=== PATIENT | male | born 1965 | race Caucasian/White ===

== ENCOUNTER → 2017-03-13 | Outpatient (CLI) | payer BC, OTHER ==
[~2017-03-13] MED LIST: BAYER CHEWABLE81 MG PO; BRILINTA90 MG PO; CENTRUM SILVER1 TAB PO; COZAAR50 MG PO; FISH OIL 1,0001 EAC1 PO; GLYBURIDE5 MG PO; HYDRODIURIL25 MG PO; JANUMET 50-1,01 EACH PO; JARDIANCE25 MG PO; LIPITOR20 M1 PO; NEXIUM40 MG PO; NORCO 5-325 TA1 EACH PO; OMEPRAZOLE40 MG PO; TOPROL XL 5050 MG PO; TOPROL XL25 MG PO; TRICOR145 MG PO; ZANTAC (NON-FO150 MG PO; ZETIA10 MG PO
--- NOTE | ~2017-03-13 | OR ---
PATIENT'S NAME: JOSH ARIZMENDI [facility] AGE: 52 Y [address] ROOM: [place] [address] LOCATION: [facility] ADMIT DATE: 03/13/2017 OR/Procedure Report DISCHARGE DATE: FAMILY PHYSICIAN: George Eubanks MD ATTENDING PHYSICIAN: SANDRA MATA SURGEON: Afsaneh Whitlock MD RESERVOIR ENGINEERING MANAGER: DATE OF PROCEDURE: 03/13/2017 REFERRING PHYSICIAN: Sandra Mata M.D. PROCEDURE PERFORMED: Cardiac CT scan. INDICATION: Chest pain. PROCEDURE: The procedure was explained to the patient and informed consent was obtained. Calcium scoring analysis was performed. The patient was injected with 100 mL of Isovue-[address] angiogram was then performed. FINDINGS: The total Agatston score is 326. The calcium score in the left anterior descending artery is 219 and right coronary artery is 107. CT angiogram findings: The CT angiogram was suboptimal due to inadequate opacification of coronary arteries. The left main coronary artery arises from the left coronary cusp and it divides into left anterior descending artery and left circumflex coronary arteries. The left main coronary artery is without any significant disease. The left anterior descending artery is a large caliber vessel. Proximally, it has calcified plaque and could not be visualized well. The diagonal branch is also calcified and appears to be diffusely diseased and could not be visualized well. The circumflex coronary artery is a moderate-sized vessel. It was not well opacified. The right coronary artery is a large caliber ectatic vessel. Mid right coronary artery has calcified plaque. It divides into PDA and PLV branches. The opacification of the vessel was suboptimal. IMPRESSION: 1. The total Agatston score is 326. The calcium score in the right coronary artery is 107 and left anterior descending artery is 219. 2. Coronary artery disease as described above. This study is suboptimal due to inadequate visualization/opacification of coronary arteries. Clinical correlation is recommended. Consider further workup with coronary angiogram if clinically indicated. PATIENT'S NAME: JOSH ARIZMENDI [facility] AGE: 52 Y [address] ROOM: [place] [address] LOCATION: [facility] ADMIT DATE: 03/13/2017 OR/Procedure Report DISCHARGE DATE: FAMILY PHYSICIAN: George Eubanks MD ATTENDING PHYSICIAN: SANDRA MATA MD KOSTAS CASTRO/modl /[id number] d: 03/14/17 2328 t: 03/20/17 1540, OPERATIVE SUMMARY
== END | disposition disaster alternative care site (69) ==
LOC: GPOC 03-12 13:00 → GRAD 10:21
DX: I25.10 Atherosclerotic heart disease of native coronary artery without angina pectoris (principal); K76.0 Fatty (change of) liver, not elsewhere classified
CPT/HCPCS: J2001; Q9967

== ENCOUNTER 2017-04-23 07:01 | Inpatient (IN) | payer BC, OTHER ==
[~2017-04-23] VITALS: Ht 180.3 cm; Wt 101.2 kg
--- NOTE | ~2017-04-23 | CATH ---
Cardiac Diagnostic + PCI Report Demographics Patient Name UGO Chambers Gender Male Date of 1965 Age 52 year(s) Patient Number [id number] Date of Study 04/23/2017 Visit Number [id number] Room Number G[address] [place] [id number] Ht 180.34 cm Wt 98.4 kg Referring Raimundo Chavarria Primary Physician Physician Performing [place] Secondary Physician Physician Sandra SINGH Diagnostic [facility] Assisting Physician Physician Sandra SINGH Interventional [facility] Physician Fashion Patternmaker Physician Sandra SINGH Findings and Conclusions Diagnostic Findings and Conclusion 1. 1 vessel CAD. Diagonal 90%, pt has symptoms of angina on angianginal agents. 2. Mid LAD 60%, iFR 0.92 3. No gradient across LV. Attempted right radial a access however, due to severe spasm and pain unable to advance wire to place sheath, US guidance used for Rt femoral a access. Diagnostic Recommendations PCI of diagonal branch. Interventional Findings and Conclusion S/P PCI of Diagonal with JERALD. Medical therapy for moderate lesion in mid LAD as iFR is not physiologically significant. Interventional Recommendations Patient will be observed overnight. Continue current medications. Patient has been instructed to not lift anything more than 5 pounds for 1 week. I will plan on seeing the patient back in 2 week(s). Aggressive medical therapy for coronary artery disease. Dual Anti-platelet therapy. Referral to Cardiac Rehabilitation after discharge . Procedure Description The patient was brought to the diagnostic cardiac catheterization-EP laboratory in the fasting, non-sedated state. Informed consent was obtained in the written and verbal form after the risks and benefits were explained. The patient had no further questions and agreed to proceed. The planned puncture-incision site(s) were shaved and prepped with ChloraPrep and draped in the usual sterile manner. Conscious sedation, supplemental oxygen, and pain control medications were delivered by a registered nurse under physician guidance. Surface ECG rhythm, blood pressure measurement, and pulse oximetry were monitored throughout the procedure. Arterial access. The access site was infiltrated with lidocaine. The vessel was entered with the Seldinger technique. A sheath was advanced into the vessel and used for catheter placement. Selective left coronary angiography. A catheter was advanced into the left coronary vessel ostium under Fluoroscopic guidance. Contrast was injected by hand. Images were obtained in multiple projections. Selective right coronary angiography. A catheter was advanced into the right coronary vessel ostium under fluoroscopic guidance. Contrast was injected by hand. Images were obtained in multiple projections. Left heart catheterization. A catheter was advanced across the aortic valve to the left ventricle under fluoroscopic guidance. Resting hemodynamics were obtained. Angioplasty and Stent Placement: A guiding catheter was used to intubate the vessel. A 0.14 wire was then used to cross the lesion. A balloon catheter was placed across the lesion and inflated. The balloon catheter was then removed. A Drug Eluting Stent was placed and inflated. Post placement angiograms were performed. iFR measurement was performed. The vessel was entered with a guiding catheter. The iFR wire was normalized and then advanced across the lesion. Measurements were taken. Arterial artery hemostasis was achieved. The patient was transferred to a regular nursing floor via cart accompanied by a nurse. The patient left the laboratory in stable condition. Diagnostic Cath Status: Elective Interventional Cath Status: Elective Procedure Procedure Type Diagnostic procedure:Angiography:, Coronary Angios w/C PCI procedure:Drug Eluting Coronary Stent:, Diagonal, Additional Imaging:, FFR/iFR:, Initial Vessel Indications: Positive CTCA: Internediate. The procedure was explained in detail to the patient. Risks, complications and alternative treatments were reviewed. Written consent was obtained. Medications Reviewed with Patient prior to Procedure. Angiographic Findings Dominance: Right Cardiac Arteries and Lesion Findings LMCA: Normal (0% Stenosis). LAD: Lesion on 1st Diag: Proximal subsection.90% stenosis 24 mm length reduced to 0%. Pre procedure CHEVY III flow was noted. Post Procedure CHEVY III flow was present. The guidewire cross was successful.The lesion was diagnosed as a moderate risk lesion.Culprit lesion. Treatment results:Interventional treatment was successful. Devices used - BMW [place] Wire .014 x. Number of passes: 1. - Trek Balloon 2.5 x 25. 1 inflation(s) to a max pressure of: 12 lea. - Promus Premier 2.75 x 24 Stent. 1 inflation(s) to a max pressure of: 14 lea. Lesion on Mid LAD: Mid subsection.60% stenosis .The lesion was eccentric. Devices used - Verrata Pressure Wire. Number of passes: 1. LCx: Normal (0% Stenosis). RCA: Abnormal.Ectatic proximal aneurysmal. PL NL. PDA NL. Coronary Tree Procedure Data Procedure Date Date: 04/23/2017Start: 08:35 AMEnd: 09:30 AM Entry Locations - The Right Radial artery access attempt was not successful. Hemostasis was successfully obtained using Manual Compression. Closure Comments: Pressure held for 10 minutes by Nicolle Ga and wrapped with Coban.. - Retrograde Percutaneous access was performed through the Right Femoral artery (Primary location). A 6 Fr sheath was inserted. Hemostasis was successfully obtained using Angio-Seal STS PLUS (St. [place]). Closure Comments: Performed by Nicolle Ga, RT.. Procedure Medications Order and Administration + + + + + !Time !Medication !Dosage !Route ! + + + + + !04/23/2017 08:31 !Versed !1 mg !I.V. ! !AM ! ! ! ! + + + + + !04/23/2017 08:36 !Fentanyl !50 mcg !I.V. ! !AM ! ! ! ! + + + + + !04/23/2017 08:36 !Versed !1 mg !I.V. ! !AM ! ! ! ! + + + + + !04/23/2017 08:52 !Fentanyl !50 mcg !I.V. ! !AM ! ! ! ! + + + + + !04/23/2017 08:56 !Oxygen !2 l/min !NC ! !AM ! ! ! ! + + + + + !04/23/2017 09:04 !Angiomax (Bivalirudin) !75 mg !I.V. bolus ! !AM !(ACC_5) ! ! ! + + + + + !04/23/2017 09:04 !Angiomax (Bivalirudin) !1.75 mg/kg/hr!I.V. drip ! !AM !(ACC_5) ! ! ! + + + + + !04/23/2017 09:06 !Versed !1 mg !I.V. ! !AM ! ! ! ! + + + + + !04/23/2017 09:06 !Fentanyl !25 mcg !I.V. ! !AM ! ! ! ! + + + + + !04/23/2017 09:22 !Brilinta (Ticagrelor) !180 mg !P.O. ! !AM !(ACC_20) ! ! ! + + + + + Devices Used - A5 Fr. BS JR 4 Diag. Catheterwas used for:Right coronary angiography. - A5 Fr. BS JL 4 Diag. Catheterwas used for:Left coronary angiography. - A6 Fr. EBU 3.5 Guide Catheterwas used for:LAD Intervention. Contrast Material - Isovue [id number] ml Fluoroscopy Time: Diagnostic: 9:00 minutes. Total: 9:00 minutes. Fluoroscopy Dose: Diagnostic: 1889 mGy. Total: 1889 mGy. Estimated Blood Loss: 20 ml. Additional [facility] PCI Information PCI Indication:PCI for high risk Non-STEMI or unstable angina. Medical History Performed Procedures and Imaging Results - Cardiac CTAwas performed. Results were: Unavailable. Allergies - Other:(Varenicline). Risk Factors The patient risk factors include:hypertension, family history of premature CAD, orally-treated diabetes mellitus, chronic lung disease, last creatinine: 1 mg/dl, creatinine clearance: 123 ml/min, dyslipidemia and former tobacco use. Admission Data Admission Date: 04/23/2017 Admission Time: 07:01 AM Admit Source: Other Insurance Payors: Private health insurance. Admission Medications + +------+------+ + + + + !Medication !Dosage!Times !Last !Last !Administered !Comments ! ! ! !Per !Delivery !Delivery ! ! ! ! ! !Day !Date !Time ! ! ! + +------+------+ + + + + !Aspirin ! ! ! ! !Yes ! ! !(any) ! ! ! ! ! ! ! + +------+------+ + + + + !Non-Statin ! ! ! ! !Yes ! ! !(any) ! ! ! ! ! ! ! + +------+------+ + + + + !Beta ! ! ! ! !Yes ! ! !Henry ! ! ! ! ! ! ! !(any) ! ! ! ! ! ! ! + +------+------+ + + + + !ARB (any) ! ! ! ! !Yes ! ! + +------+------+ + + + + Clinical Evaluation Leading to Procedure - The patient's CAD presentation was assessed as: Stable angina. - The patient's anginal syndrome during the past two weeks was assessed as: Class II according to the [place] Cardiovascular Society Classification System (CCS). Anti-anginal medications were prescribed during the past two weeks. The medication is: Beta Blockers. Hemodynamics Condition: Rest O2 Consumption: Estimated: 261.17Heart Rate: 71 bpm Pressures (mmHg) +-----+ + !Site !Pressure ! +-----+ + !LV !136/50 ,42 ! +-----+ + !AO !125/79 (100) ! +-----+ + !AO !134/83 (107) ! +-----+ + Shunts Oxygen Values O2 Capacity 205.36 O2 Consumption 261.17 Signatures dtt: SANDRA MATA dtd: 04/23/17 0835 Physician Self Edit
--- NOTE | ~2017-04-23 | CON ---
[facility] AGE[facility] 52 Y [address] ROOM: [address] [place], [place] [address] LOCATION: [facility]PCU ADMIT DATE: 04/23/2017 Consultation DISCHARGE DATE: FAMILY PHYSICIAN: George Eubanks MD ATTENDING PHYSICIAN: SANDRA MATA DATE OF CONSULTATION: 04/29/2017 REFERRING PHYSICIAN: Sandra Mata MD REASON FOR CONSULT: Right groin wound and scrotal edema. HISTORY OF PRESENT ILLNESS: This is a 52-year-old male patient who was admitted to [facility] for a heart catheterization. Unfortunately, he suffered from a right groin hematoma after his cardiac catheterization with mild deployment of an Angio-Seal. He was taken to emergent surgery by Dr. Pineda for repair. Currently, his groin site is approximated with sutures. No drainage. LOPEZ drain has been removed. Gauze dressing and Tegaderm over site. Significant scrotal edema. The patient complains of intermittent sharp pain. Some relief with pain medication. Concerned about possible "chafing." He has a history of diabetes, anxiety, hypertension, arthritis, and hyperlipidemia. Plan is to discharge to home today. He is denying chest pain. He denies further skin issues. PAST MEDICAL HISTORY: 1. Type 2 diabetes mellitus. 2. Anxiety. 3. Hypertension. 4. Osteoarthritis. 5. Hyperlipidemia. 6. Nocturia. 7. Post-traumatic stress. 8. Heartburn. PAST SURGICAL HISTORY: 1. Cholecystectomy. 2. Left knee surgery. 3. Hernia repair. 4. Hip surgery. 5. Right groin hematoma, status post cardiac catheterization with mild deployment of Angio-Seal. PATIENT'S NAME: ANNETTA ARIZMENDIH Reyes [facility] AGE: 52 Y [address] ROOM: [address] [place], [place] [address] LOCATION: GPCU ADMIT DATE: 04/23/2017 Consultation DISCHARGE DATE: FAMILY PHYSICIAN: George Eubanks MD ATTENDING PHYSICIAN: SANDRA MATA FAMILY HISTORY: None listed. SOCIAL HISTORY: The patient is a former smoker. He lives with his in [place]. He works at [employer]. He was in the . ALLERGIES: CHANTIX, DOG DANDER, CAT DANDER, AND PIGWEED. CURRENT MEDICATIONS: Please refer to the medication administration record. REVIEW OF SYSTEMS: Pertinent positives addressed in the HPI and all the rest are negative. PHYSICAL EXAMINATION: VITAL SIGNS: Temperature 98.7, pulse 89, respirations 16, blood pressure 131/72, and pulse oximetry 96% on room air. Height 5 feet 11 inches and weight 101.2 kg. GENERAL: The patient is alert and oriented x3. Appears stated age. In no acute distress. HEENT: Head; normocephalic and atraumatic. Oral mucosa intact. NEUROLOGIC: Grossly nonfocal. EXTREMITIES: Deferred current. ABDOMEN: Soft. SKIN: Significant ecchymosis and edema to scrotum. No skin breakdown noted. Right groin incision approximated with sutures. Indurated and very tender to touch. No drainage. Old LOPEZ drain site covered with gauze and Tegaderm. Ecchymosis to the inner thighs, right worse than left. No other skin issues per patient. LABORATORY DATA: Please refer to patient's chart. ASSESSMENT AND PLAN: Again this is a 52-year-old male patient who was admitted to [facility] for heart catheterization. 1. Right groin wound post cardiac catheterization with mild deployment of Angio-Seal. Repaired by Dr. Pineda. Sutures intact to the wound. The patient will follow up with Dr. Pineda in 2 weeks. Leave the site open to air and follow instructions per Vascular. 2. Scrotal edema. Obviously related to right groin hematoma and recent surgical repair. No skin denudement noted. The patient is concerned about chafing and risk of skin breakdown. Discussed different treatment PATIENT'S NAME: JOSH ARIZMENDI [facility] AGE: 52 Y [address] ROOM: [address] [place], [place] [address] [facility] ADMIT DATE: 04/23/2017 Consultation DISCHARGE DATE: FAMILY PHYSICIAN: George Eubanks MD ATTENDING PHYSICIAN: SANDRA MATA options. Discussed applying wash cloths and paper towel to folds. Discussed propping scrotum up with a pillowcase and towels. He is finding comfort in ice and would like to continue to use so. Discussed only using for 20 minutes at a time. I gave him [place] to apply thin layer between his folds as needed. Discussed proper hygiene. The patient is okay to shower as long as Vascular is okay with it. Discussed risk of fungal infection. I spent a total of 30 minutes with the patient educating him on different treatment options. He seemed eager to find a solution to the edema. I noted it will take time. He is to continue to follow up with Dr. Pineda and his PCP, Dr. Eubanks, for further needs. I wish him good luck. LOWELL FRIAS APRN FOR MD ARIK ORELLANA/mary jo /[id number] d: 04/29/17 1143 t: 05/03/17 1110, CONSULTATION REPORT
--- NOTE | ~2017-04-23 | DS ---
PATIENT'S NAME: ANNETTA ARIZMENDIH Reyes [facility] AGE: 52 Y [address] ROOM: [place] [address] LOCATION: GPCU ADMIT DATE: 04/23/2017 Discharge Summary DISCHARGE DATE: 04/29/2017 FAMILY PHYSICIAN: George Eubanks MD ATTENDING PHYSICIAN: Sandra Tejada DISCHARGE DIAGNOSES: 1. Cardiovascular disease. 2. Diabetes mellitus type 2. 3. Allergic rhinitis. 4. Elevated liver enzymes. 5. Essential hypertension. 6. Gastroesophageal reflux disease. 7. Mixed hyperlipidemia. 8. Obstructive sleep apnea. 9. Scrotal hematoma. 10. Irritable bowel syndrome. CONSULTS DURING ADMISSION: Cardiology, Vascular Surgery, PT, OT, Care Management. PROCEDURES DURING ADMISSION: 1. Heart catheterization with stent placement on April 23, 2017. 2. Surgery to repair a right groin hematoma post cardiac cath on April 23, 2017. HOSPITAL COURSE: The patient is a 52-year-old male with known history of coronary artery disease and diabetes mellitus type 2, who went in for an angiogram and was found to have significant cardiovascular disease and symptomatic with chest pains. The patient had a heart catheterization performed on 04/23/2017 with stent placement. After the heart catheterization, there was a complication when the Angio-Seal on his groin malfunctioned, and the patient was taken back to immediate surgery and repaired by Vascular Surgery. He suffered a scrotal hematoma due to this along with the right groin hematoma. The patient had his metformin and other diabetes medications held and was given sliding scale insulin for the first couple of days due to receiving contrast dye. The patient's renal function remained stable. His potassium improved to normal. Physical Therapy worked with him along with Vascular Surgery to help with his hematomas. The patient then had metformin started just before discharge after 48-hour clearance of the dye. Upon day of discharge, the patient was still having difficulty with ambulating and needing assistance, and also pain control due to his hematoma but was tolerating diet. DISCHARGE CONDITION: Stable. PATIENT'S NAME: JOSH ARIZMENDI [facility] AGE: 52 Y [address] ROOM: [address] [address] LOCATION: GPCU ADMIT DATE: 04/23/2017 Discharge Summary DISCHARGE DATE: 04/29/2017 FAMILY PHYSICIAN: George Eubanks MD ATTENDING PHYSICIAN: Sandra Tejada DISPOSITION: Home. DISCHARGE MEDICATIONS: Please see list. DISCHARGE INSTRUCTIONS: I had a [id number] with the patient on April 29, 2017 about home health coming in assisting him. At that time, we will do chcf to work on make sure the wound dressings were kept clean along with a scrotal hematoma to try to prevent any infection. We will keep his Lucas in and have him follow up with Urology in approximately one week. The patient will be started back on all of his diabetes medications. The patient will be also started on his home medications for his hypertension. The patient is to follow up with Cardiology and Vascular Surgery as directed, and he is to follow the directions of Home Health as far as activity. I also wrote for a walker and a seat assist for the toilet. MD STACEY BAEZG/stevel /[id number] d: 04/30/17 0342 t: 05/06/17 1220, DISCHARGE SUMMARY
--- NOTE | ~2017-04-23 | OR ---
PATIENT'S NAME: JOSH ARIZMENDI [facility] AGE: 52 Y [address] ROOM: [address] [address] [facility] AD[facility] DATE: 04/23/2017 OR/Procedure Report DISCHARGE DATE: FAMILY PHYSICIAN: George Eubanks MD ATTENDING PHYSICIAN: KOFI MATA SURGEON: Daljit Pineda MD PRINTING PRESS MACHINIST: DATE OF PROCEDURE: 04/23/2017 PREOPERATIVE DIAGNOSIS: Right groin hematoma, post cardiac cath. POSTOPERATIVE DIAGNOSIS: Mal-deployment of Angio-Seal. ANESTHESIA: General. ESTIMATED BLOOD LOSS: 600 mL. OPERATIVE FINDINGS: Angio-Seal mal-deployment with perforation of the common femoral artery, actively bleeding, repaired with a single 5-0 Prolene. DESCRIPTION OF PROCEDURE: The patient was brought emergently to the operating room from the CTA machine, which showed he was actively bleeding from the right groin. The patient was prepped and draped in a sterile manner. Preoperative time-out was performed expediently. The patient received preoperative antibiotics. We made a transverse incision in the right groin, dissected down to the fascia, incised the fascia, and evacuated large amounts of hematoma. We irrigated active and copious amounts of bleeding. We were able to eventually control the common femoral artery proximally and distally. We then able to put a 5-0 Prolene in the perforation of the common femoral artery. Prior to this, we had found the Angio-Seal. The footplate was within the artery, which we were able to easily remove and appeared that the collagen had not been deployed adequately. It still appeared quite straight and not adequately compressed. We copiously irrigated the wound. We tried to evacuate as much hematoma as we could from the right scrotum. We then passed a 10-flat LOPEZ drain into the wound. We reapproximated deep layers with 2-0 Vicryl. Skin was closed with interrupted 3-0 Prolene mattress stitches. The patient tolerated the procedure well and transferred to recovery room and back up to the U. DALJIT PINEDA MD [facility]/modl PATIENT'S NAME: JOSH ARIZMENDI [facility] AGE: 52 Y [address] ROOM: [address] [address] [facility] AD[facility] DATE: 04/23/2017 OR/Procedure Report DISCHARGE DATE: FAMILY PHYSICIAN: George Eubanks MD ATTENDING PHYSICIAN: KOFI MATA /[id number] d: 04/23/172206 t: 04/27/17 1629, OPERATIVE SUMMARY
[~2017-04-23 07:01] MED LIST changes: -BRILINTA90 MG PO; -LIPITOR20 M1 PO; -NORCO 5-325 TA1 EACH PO; -OMEPRAZOLE40 MG PO; -TOPROL XL 5050 MG PO
[2017-04-23 08:10] LABS: BASOPHIL % 0.5 %; EOSINOPHIL # 0.2 K/uL (0.0-0.5); EOSINOPHIL % 3.2 %; HEMATOCRIT 40.9 % (37.0-53.0); HEMOGLOBIN 15.1 g/dL (12.0-17.0); IMMATURE GRANULOCYTE % 0.3 %; LYMPHOCYTE # 2.7 K/uL (0.8-4.0); LYMPHOCYTE % 45.8 %; MCH 32.8 pg (27.0-34.0); MCHC 36.9 gm/dL (32.0-36.5); MCV 88.7 fl (83.0-98.0); MONOCYTE # 0.5 K/uL (0.0-1.0); MPV 10.8 fl (9.4-12.4); NEUTROPHIL # (ANC) 2.5 K/uL (1.4-9.0); NEUTROPHIL % 42.2 %; NRBC % 0 /100WBC (0-0.00); PLATELET COUNT 164 K/uL (150-450); RBC 4.61 M/uL (4.00-6.00); RDW-CV 12.3 % (11.9-14.6); WBC 5.9 K/uL (4.0-11.0)
[2017-04-23 08:18] LABS: INR - (THERAPEUTIC) 0.99 (0.92-1.07); PROTIME 10.4 SECONDS (9.8-11.4); PTT 25 SECONDS (25-32)
[2017-04-23 08:23] LABS: ALBUMIN 3.8 gm/dL (3.5-5.0); CALCIUM 8.2 mg/dL (8.5-10.5); TOTAL BILIRUBIN 0.5 mg/dL (0.0-1.5); TOTAL PROTEIN 6.6 g/dL (6.0-8.4)
[2017-04-23 08:29] LABS: ANION GAP 11.3 (10.0-19.0); POTASSIUM 4.3 mMol/L (3.7-5.1)
[2017-04-23 11:05] LABS: CPK 119 IU/L (35-332)
[2017-04-23 16:52] LABS: CPK 106 IU/L (35-332)
[2017-04-23 17:55] LABS: HEMATOCRIT 38.4 % (37.0-53.0); HEMOGLOBIN 14.1 g/dL (12.0-17.0)
[2017-04-23 18:09] LABS: ANION GAP 12.6 (10.0-19.0); BLOOD UREA NITROGEN 14 mg/dL (6-24); CALCIUM 7.9 mg/dL (8.5-10.5); CHLORIDE 109 mMol/L (96-110); CO2 25 mMol/L (22-32); CREATININE 0.9 mg/dL (0.6-1.3); POTASSIUM 3.6 mMol/L (3.7-5.1); SODIUM 143 mMol/L (135-145)
[2017-04-23 20:08] LABS: BASOPHIL % 0.3 %; EOSINOPHIL % 0.4 %; HEMOGLOBIN 9.7 g/dL (12.0-17.0); IMMATURE GRANULOCYTE # 0.1 K/uL (0.0-0.3); IMMATURE GRANULOCYTE % 0.5 %; LYMPHOCYTE # 1.5 K/uL (0.8-4.0); MCHC 36.1 gm/dL (32.0-36.5); MCV 90.6 fl (83.0-98.0); MONOCYTE # 0.8 K/uL (0.0-1.0); MONOCYTE % 6.7 %; MPV 10.8 fl (9.4-12.4); NEUTROPHIL # (ANC) 8.9 K/uL (1.4-9.0); NEUTROPHIL % 79.1 %; NRBC % 0 /100WBC (0-0.00); PLATELET COUNT 154 K/uL (150-450); RDW-CV 12.8 % (11.9-14.6); WBC 11.2 K/uL (4.0-11.0)
[2017-04-23 20:10] LABS: HEMATOCRIT 26.9 % (37.0-53.0); MCH 32.7 pg (27.0-34.0); RBC 2.97 M/uL (4.00-6.00)
[2017-04-23 22:14] LABS: HEMATOCRIT 30.4 % (37.0-53.0); HEMOGLOBIN 10.8 g/dL (12.0-17.0)
[2017-04-23 22:33] LABS: CPK 66 IU/L (35-332)
[2017-04-24 04:29] LABS: BASOPHIL % 0.2 %; EOSINOPHIL % 0.4 %; HEMATOCRIT 29.7 % (37.0-53.0); HEMOGLOBIN 10.4 g/dL (12.0-17.0); IMMATURE GRANULOCYTE % 0.4 %; LYMPHOCYTE # 1.8 K/uL (0.8-4.0); LYMPHOCYTE % 22.1 %; MCH 31.8 pg (27.0-34.0); MCV 90.8 fl (83.0-98.0); MONOCYTE # 0.6 K/uL (0.0-1.0); MONOCYTE % 7.8 %; MPV 9.9 fl (9.4-12.4); NEUTROPHIL # (ANC) 5.7 K/uL (1.4-9.0); NEUTROPHIL % 69.1 %; NRBC % 0 /100WBC (0-0.00); PLATELET COUNT 131 K/uL (150-450); RBC 3.27 M/uL (4.00-6.00); RDW-CV 13.3 % (11.9-14.6); WBC 8.2 K/uL (4.0-11.0)
[2017-04-24 04:56] LABS: ALBUMIN 2.8 gm/dL (3.5-5.0); ALK PHOS 37 IU/L (33-138); ALT 69 IU/L (12-78); ANION GAP 11.2 (10.0-19.0); AST 27 IU/L (10-40); BLOOD UREA NITROGEN 10 mg/dL (6-24); CHLORIDE 107 mMol/L (96-110); CO2 26 mMol/L (22-32); CREATININE 0.8 mg/dL (0.6-1.3); POTASSIUM 4.2 mMol/L (3.7-5.1); SODIUM 140 mMol/L (135-145); TOTAL BILIRUBIN 0.6 mg/dL (0.0-1.5)
[2017-04-24 04:57] LABS: CALCIUM 6.9 mg/dL (8.5-10.5); TOTAL PROTEIN 4.8 g/dL (6.0-8.4)
[2017-04-25] MEDS ORDERED: OMEPRAZOLE40 MG PO (11:42)
[2017-04-26 06:20] LABS: BASOPHIL % 0.2 %; EOSINOPHIL # 0.4 K/uL (0.0-0.5); EOSINOPHIL % 5.5 %; HEMOGLOBIN 10.7 g/dL (12.0-17.0); IMMATURE GRANULOCYTE % 0.3 %; LYMPHOCYTE # 1.7 K/uL (0.8-4.0); LYMPHOCYTE % 26.7 %; MCH 33.1 pg (27.0-34.0); MCHC 36.9 gm/dL (32.0-36.5); MCV 89.8 fl (83.0-98.0); MONOCYTE # 0.5 K/uL (0.0-1.0); MPV 10.3 fl (9.4-12.4); NEUTROPHIL # (ANC) 3.9 K/uL (1.4-9.0); NEUTROPHIL % 60.3 %; NRBC % 0 /100WBC (0-0.00); PLATELET COUNT 138 K/uL (150-450); RBC 3.23 M/uL (4.00-6.00); RDW-CV 12.8 % (11.9-14.6); WBC 6.4 K/uL (4.0-11.0)
[2017-04-27 04:17] LABS: BASOPHIL % 0.2 %; EOSINOPHIL # 0.3 K/uL (0.0-0.5); EOSINOPHIL % 6.2 %; HEMATOCRIT 27.2 % (37.0-53.0); HEMOGLOBIN 9.9 g/dL (12.0-17.0); IMMATURE GRANULOCYTE % 0.7 %; LYMPHOCYTE # 1.2 K/uL (0.8-4.0); LYMPHOCYTE % 21.5 %; MCH 32.5 pg (27.0-34.0); MCHC 36.4 gm/dL (32.0-36.5); MCV 89.2 fl (83.0-98.0); MONOCYTE # 0.5 K/uL (0.0-1.0); MPV 10.2 fl (9.4-12.4); NEUTROPHIL # (ANC) 3.3 K/uL (1.4-9.0); NEUTROPHIL % 62.4 %; NRBC % 0 /100WBC (0-0.00); PLATELET COUNT 138 K/uL (150-450); RBC 3.05 M/uL (4.00-6.00); WBC 5.4 K/uL (4.0-11.0)
[2017-04-27 04:32] LABS: ANION GAP 8.9 (10.0-19.0); BLOOD UREA NITROGEN 11 mg/dL (6-24); CALCIUM 7.9 mg/dL (8.5-10.5); CHLORIDE 106 mMol/L (96-110); CO2 28 mMol/L (22-32); CREATININE 0.8 mg/dL (0.6-1.3); POTASSIUM 3.9 mMol/L (3.7-5.1); SODIUM 139 mMol/L (135-145)
[2017-04-28 19:39] LABS: CPK 60 IU/L (35-332)
[2017-04-29] MEDS ORDERED: LIPITOR20 M1 PO (10:29)
[2017-04-29] MEDS ORDERED: TOPROL XL 5050 MG PO (10:36)
[2017-04-29] MEDS ORDERED: BRILINTA90 MG PO (10:40)
[2017-04-29] MEDS ORDERED: NORCO 5-325 TA1 EACH PO (10:47)
== END 2017-04-29 14:30 | disposition home health service (06) | DRG 253 ==
LOC: GPCU 07:01 → GCAT 07:01 → GPCU 09:35 → GCAT 09:36 → GPCU 09:37
PROVIDERS: Surgery Vascular Surgery; ADMIT Internal Medicine Interventional Cardiology
PROC: 4A023N7 Measurement of Cardiac Sampling and Pressure, Left Heart, Percutaneous Approach (ICD-10-PCS; principal; 2017-04-23)
PROC: 04QK0ZZ Repair Right Femoral Artery, Open Approach (ICD-10-PCS; principal; 2017-04-23)
PROC: B2151ZZ Fluoroscopy of Left Heart using Low Osmolar Contrast (ICD-10-PCS; principal; 2017-04-23)
DX: I25.110 Atherosclerotic heart disease of native coronary artery with unstable angina pectoris (principal); I97.51 Accidental puncture and laceration of a circulatory system organ or structure during a circulatory system procedure; I10 Essential (primary) hypertension; E11.9 Type 2 diabetes mellitus without complications; G47.33 Obstructive sleep apnea (adult) (pediatric); K21.9 Gastro-esophageal reflux disease without esophagitis; E78.2 Mixed hyperlipidemia; R79.89 Other specified abnormal findings of blood chemistry; J30.9 Allergic rhinitis, unspecified; K58.9 Irritable bowel syndrome, unspecified; S30.1XXA Contusion of abdominal wall, initial encounter
CPT/HCPCS: C1725; C1760; C1769; C1874; C1887; C1894; C9600; J0131; J0461; J0583; J0690; J1644; J2001; J2250; J2270; J2405; J2720; J2765; J3010; J7030; J7050; J7060; P9016; Q9967

== ENCOUNTER → 2017-05-13 | Outpatient (CLI) | payer BC, OTHER ==
[~2017-05-13] MED LIST changes: +BRILINTA90 MG PO; +LIPITOR20 M1 PO; +NORCO 5-325 TA1 EACH PO; +OMEPRAZOLE40 MG PO; +TOPROL XL 5050 MG PO
[2017-05-13 17:01] LABS: BASOPHIL % 0.6 %; EOSINOPHIL # 0.4 K/uL (0.0-0.5); EOSINOPHIL % 6.1 %; HEMOGLOBIN 12.5 g/dL (12.0-17.0); IMMATURE GRANULOCYTE # 0.1 K/uL (0.0-0.3); IMMATURE GRANULOCYTE % 0.9 %; LYMPHOCYTE # 2.1 K/uL (0.8-4.0); MONOCYTE # 0.5 K/uL (0.0-1.0); MONOCYTE % 7.2 %; MPV 9.5 fl (9.4-12.4); NEUTROPHIL # (ANC) 3.4 K/uL (1.4-9.0); NEUTROPHIL % 53.2 %; NRBC % 0 /100WBC (0-0.00); RDW-CV 14.5 % (11.9-14.6); WBC 6.4 K/uL (4.0-11.0)
[2017-05-13 17:03] LABS: HEMATOCRIT 38.6 % (37.0-53.0); MCH 30.6 pg (27.0-34.0); MCHC 32.4 gm/dL (32.0-36.5); MCV 94.4 fl (83.0-98.0); PLATELET COUNT 370 K/uL (150-450); RBC 4.09 M/uL (4.00-6.00)
[2017-05-13 17:05] LABS: ANION GAP 11.1 (10.0-19.0); BLOOD UREA NITROGEN 17 mg/dL (6-24); CALCIUM 8.7 mg/dL (8.5-10.5); CHLORIDE 104 mMol/L (96-110); CO2 28 mMol/L (22-32); CREATININE 0.8 mg/dL (0.6-1.3); POTASSIUM 4.1 mMol/L (3.7-5.1); SODIUM 139 mMol/L (135-145)
== END ==
LOC: LNHI 16:44
PROVIDERS: Surgery Vascular Surgery
DX: E78.2 Mixed hyperlipidemia (principal); I45.10 Unspecified right bundle-branch block; E11.65 Type 2 diabetes mellitus with hyperglycemia; I10 Essential (primary) hypertension